=== PATIENT | female | born 1950 | race Caucasian/White ===

== ENCOUNTER 2020-10-03 07:54 | Outpatient (REF) | payer MEDICARE, SELFPAY ==
--- NOTE | ~2020-10-03 | MM_ITS ---
EXAMINATION: BONE DENSITOMETRY CLINICAL INDICATION: Osteoporosis. COMPARISON: Previous BD dated 09/27/2018 and baseline BD dated 09/11/2010. TECHNIQUE: Using a [employer] DXA System (software version: 13.1) manufactured by [employer], dual-energy x-ray absorptiometry was performed of the lumbar spine and left hip. The images are of good technical quality. Summary results are attached. FINDINGS: AP SPINE L1-L4: Current: BMD 0.843 g/cm2, Z-score -0.9, T-score -2.8, osteoporosis, 6.3% increase from previous, 1.9% decrease from baseline (<5% change is not significant). Prior: BMD 0.793 g/cm2. Baseline: BMD 0.859 g/cm2. LEFT FEMUR, NECK: Current: BMD 0.704 g/cm2, Z-score -0.6, T-score -2.4, osteopenia. Prior: BMD 0.707 g/cm2. Baseline: BMD 0.808 g/cm2. LEFT FEMUR, TOTAL: Current: BMD 0.805 g/cm2, Z-score 0.0, T-score -1.6, osteopenia, 1.4% increase from previous, 4.2% decrease from baseline (<5% change is not significant). Prior: BMD 0.794 g/cm2. Baseline: BMD 0.840 g/cm2. IDENTIFIED RISK FACTORS: Osteoporosis, menopause. HISTORY OF FRACTURE: None listed. MEDICATIONS: Calcium supplements or multivitamin, vitamin D, bisphosphonate. MM/XR DEXA axial skeleton IMPRESSION: 1. DIAGNOSIS: Osteoporosis based on the lowest T-score value of -2.8 in the lumbar spine applying World Health Organization criteria. 2. 10-YEAR FRACTURE RISK PREDICTION, FRAX: According to the guidelines, FRAX calculation should only be performed on patients in the osteopenia bone density category. Therefore, FRAX was not performed on this patient. 3. Treatment Recommendations: NOF guidelines recommend consideration for treatment in postmenopausal women and men age 50 and older presenting with the following: -A hip or vertebral (clinical or morphometric) fracture. -T-score less than or equal to -2.5 at the femoral neck or spine after appropriate evaluation to exclude secondary causes. -Low bone mass at the hip or spine and a 10-year fracture probability by FRAX of greater than or equal to 3% for hip fracture or greater than or equal to 20% for major osteoporotic fracture based on the [place] adapted WHO algorithm. 4. Other Recommendations: All treatment decisions require clinical judgment and consideration of individual patient factors, including patient preferences, comorbidities, previous drug use, risk factors not captured in the FRAX model (e.g. frailty, falls, vitamin D deficiency, increased bone turnover, interval significant decline in bone density) and possible under or overestimation of fracture risk by FRAX. Additional medical evaluation for secondary cause of low bone mineral density may be appropriate. FUTURE SCAN RECOMMENDATION: People with diagnosed cases of osteoporosis or at high risk for fracture should have regular bone mineral density tests. For patients eligible for Medicare, routine testing is allowed once every 2 years. The testing frequency can be increased to one year for patients who have rapidly progressing disease, those who are receiving or discontinuing medical therapy to restore bone mass, or have additional risk factors.
== END 2020-10-03 07:55 | disposition home or self-care (01) ==
LOC: HO.MAMMO 07:54
PROVIDERS: PCP Nurse Practitioner Family; Visit Provider Internal Medicine
DX: M81.0 Age-related osteoporosis without current pathological fracture (principal); Z78.0 Asymptomatic menopausal state; Z79.899 Other long term (current) drug therapy
CPT/HCPCS: 77080

== ENCOUNTER 2025-01-10 07:39 | Day surgery (SDC) | payer MEDICARE, SELFPAY ==
[2025-01-08 13:59] VITALS: BMI 22.8
--- NOTE | 2025-01-09 12:29 | HO.ANESPROP2 ---
HPI - Anesthesia Eval Consult details Narrative: 74yo F for Colonoscopy PMFSH Past Medical History Medical History PAC (premature atrial contraction) Osteoporosis Surgical History Surgical History Hx of left breast biopsy Hx of tonsillectomy H/O colonoscopy Social History Social History Are you a primary district manager primary care sales to a significant other at home: No Do you presently have visiting nurse or other home services: No Patient Tobacco Use Status: Never used Tobacco Use of substances other than those prescribed or required for medical reasons: No Have you been hit, kicked, punched, or otherwise hurt by someone within the past year? If so, by whom?: No Are you DNR?: No Advance Directives: No Advance Directives Information Provided: Yes Patient : No Meds Allergies Allergy/AdvReac Type Severity Reaction Status Date / Time No Known Allergies Allergy Verified 01/08/25 13:59 Home Medications ?Medication ?Instructions ?Recorded ?Confirmed ?Last Taken ?Type cholecalciferol (vitamin D3) 25 25 mcg PO DAILY 01/08/25 01/08/25 Unknown History mcg (1,000 unit) capsule (Vitamin D3) Exam Height,Weight and Vital Signs: Height 5 ft 5 in Weight 62.142 kg Assessment and Plan Assessment Anesthesia Assessment: Chart Reviewed
--- OUTSIDE RECORDS SUMMARY | 2025-01-09 12:30 | XMS_ITS | Patient Health Record ---
[facility] Address [address] [place] [address] Care Team Providers Care Mentally Impaired Teacher Name Role Phone MADY GONZALEZ N.P. Primary Care Provider Haley Valenzuela Unavailable [phone] Reason For Referral No Information Medications Medication SIG (Take, Route, Fr equency, Duration) Notes Start Date End Date Status Vagifem 10MCG 1 VAGINAL once a week for -3 [facility] 014 Active Calcium-Carb 600 + D 1 ORAL daily for -3 [facility] 4 Active Vitamin D3 1000 IU ORAL daily for -3 [facility] 04/18/2014 Active Vagifem 10 MCG 1 tablet Vaginal TWI CE WEEKLY for 90 days 05/15/2016 Active Vagifem 10 MCG 1 tablet Vaginal TWI CE WEEKLY for 90 days 05/14/2015 Active Actonel 35 MG 1 tablet Orally Active Social History Tobacco Use: Social History Observation Description Date Details (start date - stop date) Never Smoker NA - NA Tobacco Use/Smoking Question Answer Notes Are you a nonsmoker Problems Problem Type SNOMED Code ICD Code Onset Dates Problem Status W/U Status Risk Notes Problem Postmenopausal atrophic vaginitis (49367221) Postmenopausal atrophic vaginitis (N95.2) Active confirmed Problem Age-related osteoporosis (275727834) Age-related osteoporosis without current pathological fracture (M81.0) Active confirmed Problem Mitral valve disorder (47185523) Mitral valve disorders (424.0) Active confirmed Other Problem Osteoporosis (07664204) Unspecified osteoporosis (733.00) Active confirmed Major Problem Gynecological examination normal (045171163988585) Routine gynecological examination (V72.31) Active confirmed Diag Plan Of Treatment Pending Test Test Name Order Date MAMMOGRAM, SCREENING 05/14/2015 MAMMOGRAM, SCREENING 05/15/2016 BONE DENSITY 05/15/2016 MM Digital Mammo Screening 05/15/2016 Insurance Providers Payer Name Payer Address Payer Phone Subscriber Number Group Number Insured Name Patient Relationship to Insured Coverage Start Date Coverage End Date [employer] [address] [facility] [place] [id number] ILENE SHERIDAN Self - patient is the insured Medical (General) History Medical History History ICD Code Age-related osteoporosis without current pathological fracture M81.0 Nonrheumatic mitral valve disorder, unsp ecified I34.9 Surgical History Surgery Date(Month/Year) INTRADUCTILEPAPILLOMA LT BREAST 1982 WISDOM TEETH 1971 T & A 1960 Hospitalization History Reason Date(Month/Year) SEE SURGICAL HX
[2025-01-10 08:07] VITALS: BMI 22.0
[2025-01-10 08:23] VITALS: BP 140/68; PULSE 73; RESP 16; TEMP 36.9; O2SAT 99
--- NOTE | 2025-01-10 08:33 | P.CONAN_ITS ---
[facility]LY [facility], [facility] Past Medical History Medical History PAC (premature atrial contraction) Osteoporosis Functional capacity: independent ambulation Patient : No Family History Family history of problems with anesthesia: No Surgical History Surgical History Hx of left breast biopsy Hx of tonsillectomy H/O colonoscopy History of Problems with Anesthesia: No Social History Social History Are you a primary career development associate to a significant other at home: No Do you presently have visiting nurse or other home services: No Patient Tobacco Use Status: Never used Tobacco Use of substances other than those prescribed or required for medical reasons: No Have you been hit, kicked, punched, or otherwise hurt by someone within the past year? If so, by whom?: No Are you DNR?: No Advance Directives: No Advance Directives Information Provided: Yes Meds Allergies Allergy/AdvReac Type Severity Reaction Status Date / Time No Known Allergies Allergy Verified 01/08/25 13:59 Active Medications: Current Medications Lactated Ringer's (Lr) 1,000 mls @ 100 mls/hr IVCONT .Q10H DANIELLE Sodium Biphosphate/Sodium Phosphate (Sodium Phosphate,Henry-Dibasic 133 Ml Enema) 133 ml ME ONCE PRN PRN Reason: Poor Colonoscopy Prep Results Home Medications ?Medication ?Instructions ?Recorded ?Confirmed ?Last Taken ?Type cholecalciferol (vitamin D3) 25 25 mcg PO DAILY 01/08/25 Unknown History mcg (1,000 unit) capsule (Vitamin D3) Exam Height,Weight and Vital Signs: Height 5 ft 5 in Weight 59.9 kg Last Vital Signs Temp 98.4 F 01/10/25 08:23 Pulse 73 01/10/25 08:23 Resp 16 01/10/25 08:23 BP 140/68 H 01/10/25 08:23 Pulse Ox 99 01/10/25 08:23 O2 Del Method Room Air 01/10/25 08:23 Airway Mallampati Class: II TM Dist: >3cm Neck ROM: Full Heart: RRR Lungs: CTA Assessment and Plan Assessment Anesthesia Assessment: Anesthesia Plan Discussed Final Anesthetic Review Family History of Problems with Anesthesia: No History of Problems with Anesthesia: No NPO: Yes ASA Class: II Final Preanesthetic Review: Meds/Allgs Chart Reviewed, Consent Obtained/Reviewed and Anes Risks/Benef Reviewed Patient Risk: Low Procedure Risk: Low Anesthetic Plan Anesthetic Plan: MAC: Disposition: Standard PACU
[2025-01-10] MEDS: Lactated Ringers 1,000 ML 100 ML IVCONT (08:40)
--- NOTE | 2025-01-10 10:21 | PM.OP ---
Brief Operative Note Date of Service: 01/10/25 Pre-op diagnosis: Screening Post-op diagnosis: other (Diverticulosis) Procedure: Colonoscopy to the cecum Surgeon: Yamil Yonug MD Anesthesia: MAC Was an Ranch Hand Supervisor used for this Procedure?: No Estimated blood loss (mL): 0 Pathology: none sent Condition: stable Disposition: PACU
[2025-01-10 10:22] VITALS: BP 95/54; PULSE 76; RESP 16; TEMP 36.3; O2SAT 97
[2025-01-10 10:37] VITALS: BP 115/66; PULSE 72; RESP 18; TEMP 36.2; O2SAT 99
--- NOTE | 2025-01-10 10:55 | OP_ITS ---
DATE OF SERVICE: 01/10/2025 SURGEON: Yamil Young MD INDICATIONS: The patient presents for evaluation of colorectal cancer screening. Full consent has been obtained from her for this, including risks of bleeding and perforation. PREOPERATIVE DIAGNOSIS: POSTOPERATIVE DIAGNOSIS: PROCEDURE PERFORMED: Colonoscopy to the cecum. ESTIMATED BLOOD LOSS: COMPLICATIONS: ANESTHESIA: Medication used, monitored anesthesia care. ASSISTANTS: SPECIMENS: PREOPERATIVE DIAGNOSES: Colorectal cancer screening. POSTOPERATIVE DIAGNOSES: Colorectal cancer screening, diverticulosis, internal hemorrhoids. DESCRIPTION OF PROCEDURE: The patient was placed in the left lateral decubitus position. The digital rectal exam revealed no abnormalities. The Olympus video pediatric colonoscope was entered into the rectum and advanced easily to the cecum Once in the cecum, I did identify normal-appearing cecal pouch with appendiceal orifice and a normal-appearing ileocecal valve. The entire cecum and ileocecal valve appeared normal. There was transillumination of light deep in the right lower quadrant. The scope was then slowly withdrawn assessing all mucosal surfaces carefully. Preparation was excellent. I did not visualize any sign of polyps, colitis, nor angiodysplasia. There was a mild amount of sigmoid diverticulosis. In the rectum, scope was retroflexed visualizing some internal hemorrhoids, but no other pathology. The rectal mucosa appeared normal. The scope was straightened and withdrawn from the patient. She tolerated the procedure well and was returned to the recovery area in stable condition. IMPRESSION: 1. Sigmoid diverticulosis. 2. Internal hemorrhoids. PLAN: Given today's negative exam and her age, I do not think she would need any further screening colonoscopies. She will otherwise see me on a p.r.n. basis. Yamil Young MD RMW/MODL / [id number] MTDD
== END 2025-01-10 11:16 | disposition home or self-care (01) ==
PROVIDERS: PCP Student in an Organized Health Care Education/Training Program; Visit Provider Internal Medicine
PROC: 0DJD8ZZ Inspection of Lower Intestinal Tract, Via Natural or Artificial Opening Endoscopic (ICD-10-PCS; CPT 45378; principal; 2025-01-10 09:10)
DX: Z12.11 Encounter for screening for malignant neoplasm of colon (principal); K57.30 Diverticulosis of large intestine without perforation or abscess without bleeding; K64.8 Other hemorrhoids
CPT/HCPCS: G0121; J2003; J2704